=== PATIENT | female | born 1960 | race Two or more races ===

== ENCOUNTER 2023-08-29 11:33 | Emergency (ER) | payer OTHER ==
[~2023-08-29] VITALS: Ht 152.4 cm; Wt 63.5 kg
[2023-08-29] MEDS ORDERED: LANTUS SOL100 UNIT/1 SQ (12:12)
[2023-08-29] MEDS ORDERED: SYNJARDY XR 251 EACH PO (12:12)
[2023-08-29] MEDS ORDERED: BENICAR40 MG PO (12:12)
[2023-08-29] MEDS ORDERED: CRESTOR40 MG PO (12:12)
[2023-08-29] MEDS ORDERED: ZETIA10 MG PO (12:13)
[2023-08-29] MEDS ORDERED: KETOROLAC TROMETHAMINE 60 MG VIAL IM STA (13:18)
[2023-08-29] MEDS ORDERED: DEXAMETHASONE SODIUM PHOSPHATE 4 MG/ML VIAL IM STA (13:27)
[2023-08-29] MEDS ORDERED: DEXAMETHASONE SODIUM PHOSPHATE 4 MG/ML VIAL ONE (13:30)
== END 2023-08-29 14:36 | disposition home or self-care (01) ==
LOC: ER 11:34
DX: M25.561 Pain in right knee (principal); E11.9 Type 2 diabetes mellitus without complications; Z79.4 Long term (current) use of insulin; Z88.6 Allergy status to analgesic agent